=== PATIENT | male | born 1955 | race Two or more races ===

== ENCOUNTER 2021-10-06 16:14 | Emergency (ER) | payer MEDICARE, OTHER ==
--- NOTE | 2021-10-06 16:28 | NUR ---
[facility]ide [facility] cid in [facility] - 10/06/21 at 1629 by ROMEL PT NOT TRIAGED. WALK OFF FROM [facility].
--- NOTE | 2021-10-06 16:29 | NUR ---
PT NOT TRIAGED. WAS AMBULATORY AND DOES NOT WANT TO BE TRIAGED.
== END 2021-10-06 16:30 | disposition left against medical advice (07) ==
LOC: ER 16:21 → EDBD 16:21 → ER 16:30
DX: Z53.21 Procedure and treatment not carried out due to patient leaving prior to being seen by health care provider (principal)